=== PATIENT | male | born 1985 | race Caucasian/White ===

== ENCOUNTER 2016-12-27 19:06 | Emergency (ER) | payer SELFPAY ==
[~2016-12-27 19:06] MED LIST: BACT800T5 PO; HYDR-3533 PO; IBUP800T23 PO
[2016-12-27 19:19] VITALS: BP 128/71; PULSE 70; RESP 20; TEMP 98.6; O2SAT 98
[2016-12-27 20:15] VITALS: BP 137/63; PULSE 62; RESP 18; O2SAT 98
--- NOTE | 2016-12-27 20:34 | PD ---
HPI Chief Complaint: Headache Time Seen by Provider: 20:23 Travel History International Travel<30 days: No Contact w/Intl Traveler<30days: No Traveled to known affect area: No History of Present Illness HPI This 31-year-old male says he having a headache for the last 2 days. Said he had his head on several occasions while moving. He cracked his helmet on different pieces of furniture and had pain though he did not have loss of consciousness. He is having fairly persistent headache for a couple of days as a bitemporal headache. He says he has had some chills. He says that last night he woke up drenched with sweat. He has not had a cough or sore throat. He does smoke cigarettes. He had a tattoo 2 weeks ago. He does smoke cigarettes PFS Past Medical History Blood Disorders: No Cancer: No Cardiovascular Problems: No Diminished Hearing: No Gastrointestinal Disorders: Yes GERD: Yes Genitourinary: No Musculoskeletal: No Neurologic: No Psychiatric: No Reproductive: No Respiratory: No Immunizations Current: No Tetanus Vaccination: < 5 Years Influenza Vaccination: No Past Surgical History Other Surgery: Yes (FX JAW . TITANIUM PLATE) Social History Alcohol Use: Yes (Socially) Tobacco Use: Yes (1/2 ppd) Substance Use: Yes (Marijuana occasionally) Allergies-Medications (Allergen,Severity, Reaction): Coded Allergies: No Known Allergies (Verified , 12/27/16) Reported Meds & Prescriptions Reported Meds & Active Scripts Active No Active Prescriptions or Reported Medications Review of Systems General / Constitutional: Positive: Chills, No: Fever Eyes: No: Diploplia, Blurred Vision HENT: Positive: Headaches, No: Vertigo Cardiovascular: No: Chest Pain or Discomfort Respiratory: No: Cough, Shortness of Breath Gastrointestinal: No: Nausea, Vomiting Genitourinary: No: Urgency, Frequency Musculoskeletal: Positive: Myalgias, Arthralgias Skin: No Rash Physical Exam Narrative GENERAL: Well-developed male SKIN: Focused skin assessment warm/dry. HEAD: Atraumatic. Normocephalic. EYES: Pupils equal and round. No scleral icterus. No injection or drainage. ENT: No nasal bleeding or discharge. Mucous membranes pink and moist. NECK: Trachea midline. No JVD. Neck is supple CARDIOVASCULAR: Regular rate and rhythm. No murmur appreciated. RESPIRATORY: No accessory muscle use. Clear to auscultation. Breath sounds equal bilaterally. GASTROINTESTINAL: Abdomen soft, non-tender, nondistended. Hepatic and splenic margins not palpable. MUSCULOSKELETAL: No obvious deformities. No clubbing. No cyanosis. No edema. NEUROLOGICAL: Awake and alert. No obvious cranial nerve deficits. Motor grossly within normal limits. Normal speech. PSYCHIATRIC: Appropriate mood and affect; insight and judgment normal. Data Data Last Documented VS Vital Signs Date Time Temp Pulse Resp B/P Pulse Ox O2 Delivery O2 Flow Rate FiO2 12/27/16 21:15 98.0 66 18 129/60 98 Room Air Orders Complete Blood Count With Diff (12/27/16 20:31) Comprehensive Metabolic Panel (12/27/16 20:31) Ct Brain W/O Iv Contrast(Rout) (12/27/16 20:31) Ibuprofen (Motrin) (12/27/16 20:45) Labs Laboratory Tests Test 12/27/16 20:30 White Blood Count 4.3 TH/MM3 Red Blood Count 4.80 MIL/MM3 Hemoglobin 14.7 GM/DL Hematocrit 42.4 % Mean Corpuscular Volume 88.3 FL Mean Corpuscular Hemoglobin 30.7 PG Mean Corpuscular Hemoglobin 34.8 % Concent Red Cell Distribution Width 12.1 % Platelet Count 119 TH/MM3 Mean Platelet Volume 8.3 FL Neutrophils (%) (Auto) 58.7 % Lymphocytes (%) (Auto) 26.8 % Monocytes (%) (Auto) 11.4 % Eosinophils (%) (Auto) 2.5 % Basophils (%) (Auto) 0.6 % Neutrophils # (Auto) 2.6 TH/MM3 Lymphocytes # (Auto) 1.1 TH/MM3 Monocytes # (Auto) 0.5 TH/MM3 Eosinophils # (Auto) 0.1 TH/MM3 Basophils # (Auto) 0.0 TH/MM3 CBC Comment DIFF FINAL Differential Comment Sodium Level 140 MEQ/L Potassium Level 4.1 MEQ/L Chloride Level 103 MEQ/L Carbon Dioxide Level 31.8 MEQ/L Anion Gap 5 MEQ/L Blood Urea Nitrogen 11 MG/DL Creatinine 1.10 MG/DL Estimat Glomerular Filtration 77 ML/MIN Rate Random Glucose 100 MG/DL Calcium Level 8.7 MG/DL Total Bilirubin 0.4 MG/DL Aspartate Amino Transf 26 U/L (AST/SGOT) Alanine Aminotransferase 26 U/L (ALT/SGPT) Alkaline Phosphatase 51 U/L Total Protein 6.5 GM/DL Albumin 3.4 GM/DL MDM Medical Decision Making Medical Screen Exam Complete: Yes Emergency Medical Condition: Yes Medical Record Reviewed: Yes Differential Diagnosis Differential includes head injury, viral syndrome, meningitis Narrative Course CT scan of the head is read as negative. His white count is 4000. On examination his neck is supple and not suspicious for meningitis. This appears to be a viral illness however recommend that he take ibuprofen as needed for headache. Follow-up with his own medical doctor Diagnosis Primary Impression: Viral illness Additional Instructions: Take ibuprofen as needed for headache Scripts No Active Prescriptions or Reported Meds Disposition: 01 DISCHARGE HOME Condition: Stable Kris Castillo MD Dec 27, 2016 20:34
[2016-12-27 20:45] LABS: AUTOMATED NEUTROPHIL # 2.6 TH/MM3 (1.8-7.7); BASOPHIL % 0.6 % (0.0-2.0); EOSINOPHIL # 0.1 TH/MM3 (0-0.4); EOSINOPHIL % 2.5 % (0.0-4.0); HEMATOCRIT 42.4 % (39.0-51.0); HEMO FLAGS DIFF FINAL; LYMPH % 26.8 % (9.0-44.0); LYMPHOCYTE # 1.1 TH/MM3 (1.0-4.8); MEAN CELL VOLUME 88.3 FL (80.0-100.0); MEAN CORPUSCULAR HEMOGLOBIN 30.7 PG (27.0-34.0); MEAN CORPUSCULAR HGB CONC 34.8 % (32.0-36.0); MONO % 11.4 % (0.0-8.0); NEUT % 58.7 % (16.0-70.0); PLATELET COUNT 119 TH/MM3 (150-450); RED CELL DISTRIBUTION WIDTH 12.1 % (11.6-17.2); WHITE BLOOD COUNT 4.3 TH/MM3 (4.0-11.0)
[2016-12-27] MEDS ORDERED: IBUPROFEN 600 MG TAB PO ONE (20:45)
[2016-12-27 20:51] LABS: CHLORIDE 103 MEQ/L (98-107); POTASSIUM 4.1 MEQ/L (3.5-5.1); SODIUM (NA) 140 MEQ/L (136-145)
[2016-12-27 20:54] LABS: ANION GAP 5 MEQ/L (5-15); BICARBONATE 31.8 MEQ/L (21.0-32.0); BLOOD UREA NITROGEN 11 MG/DL (7-18)
[2016-12-27 20:57] LABS: ALT (GPT) 26 U/L (12-78); AST (GOT) 26 U/L (15-37); GLOMERULAR FILTRATION RATE 77 ML/MIN (>89)
[2016-12-27 20:59] LABS: TOTAL BILIRUBIN ADULT 0.4 MG/DL (0.2-1.0)
[2016-12-27 21:00] LABS: ALKALINE PHOSPHATASE 51 U/L (45-117)
[2016-12-27 21:15] VITALS: BP 129/60; PULSE 66; RESP 18; TEMP 98; O2SAT 98
--- NOTE | 2016-12-27 21:16 | RADRPT ---
EXAM DATE/TIME: 12/27/2016 20:51 [facility] COMPARISON: No previous studies available for comparison. INDICATIONS : Trauma. Cephalgia. RADIATION DOSE: 52.78 CTDIvol (mGy) MEDICAL HISTORY : None SURGICAL HISTORY : mandible ENCOUNTER: Initial ACUITY: 2 days PAIN SCALE: 7/10 LOCATION: Bilateral temporal TECHNIQUE: Multiple contiguous axial images were obtained of the head. Using automated exposure control and adj ustment of the mA and/or kV according to patient size, radiation dose was kept as low as reasonably a chievable to obtain optimal diagnostic quality images. DICOM format image data is available electro nically for review and comparison. FINDINGS: CEREBRUM: The ventricles are normal for age. No evidence of midline shift, mass lesion, hemorrhage or acute in farction. No extra-axial fluid collections are seen. POSTERIOR FOSSA: The cerebellum and brainstem are intact. The 4th ventricle is midline. The cerebellopontine angle i s unremarkable. EXTRACRANIAL: The visualized portion of the orbits is intact. SKULL: The calvaria is intact. No evidence of skull fracture. CONCLUSION: Normal examination. David Raygoza Jr., MD on December 27, 2016 at 21:14 Board Certified Radiologist. This report was verified electronically.
[2016-12-27 21:50] VITALS: RESP 18
== END 2016-12-27 21:49 | disposition home or self-care (01) ==
LOC: PHED 19:06
DX: B34.9 Viral infection, unspecified (principal); F17.210 Nicotine dependence, cigarettes, uncomplicated
CPT/HCPCS: 70450; 80053; 85025; 99285

== ENCOUNTER 2017-10-17 20:52 | Emergency (ER) | payer SELFPAY ==
[~2017-10-17] VITALS: Ht 172.7 cm; Wt 59.0 kg
[2017-10-17 21:56] VITALS: BP 128/71; PULSE 78; RESP 20; TEMP 98.6
[2017-10-17 22:34] LABS: AUTOMATED NEUTROPHIL # 4.4 TH/MM3 (1.8-7.7); BASOPHIL # 0.5 TH/MM3 (0-0.2); BASOPHIL % 6.6 % (0.0-2.0); EOSINOPHIL % 0.6 % (0.0-4.0); HEMATOCRIT 38.5 % (39.0-51.0); HEMOGLOBIN 13.5 GM/DL (13.0-17.0); LYMPH % 26.4 % (9.0-44.0); LYMPHOCYTE # 1.9 TH/MM3 (1.0-4.8); MEAN CELL VOLUME 83.9 FL (80.0-100.0); MEAN CORPUSCULAR HEMOGLOBIN 29.4 PG (27.0-34.0); MEAN PLATELET VOLUME 7.8 FL (7.0-11.0); MONO % 4.9 % (0.0-8.0); MONOCYTE # 0.4 TH/MM3 (0-0.9); NEUT % 61.5 % (16.0-70.0); PLATELET COUNT 183 TH/MM3 (150-450); RED BLOOD COUNT 4.59 MIL/MM3 (4.50-5.90); RED CELL DISTRIBUTION WIDTH 12.4 % (11.6-17.2); WHITE BLOOD COUNT 7.2 TH/MM3 (4.0-11.0)
[2017-10-17 22:42] LABS: CHLORIDE 110 MEQ/L (98-107); SODIUM (NA) 142 MEQ/L (136-145)
[2017-10-17 22:45] LABS: ALBUMIN 3.4 GM/DL (3.4-5.0); BICARBONATE 25.3 MEQ/L (21.0-32.0); BLOOD UREA NITROGEN 5 MG/DL (7-18); CALCIUM 8.5 MG/DL (8.5-10.1); GLUCOSE,RANDOM 105 MG/DL (74-106)
[2017-10-17 22:48] LABS: ALT (GPT) 31 U/L (12-78); AST (GOT) 16 U/L (15-37); CREATININE 0.67 MG/DL (0.60-1.30); GLOMERULAR FILTRATION RATE 136 ML/MIN (>89)
[2017-10-17 22:50] LABS: TOTAL BILIRUBIN ADULT 0.3 MG/DL (0.2-1.0)
[2017-10-17] MEDS ORDERED: SODIUM CHLOR 0.9% 1000 ML INJ 1,000 ML IV SCH (22:50)
[2017-10-17 22:51] LABS: ALKALINE PHOSPHATASE 59 U/L (45-117)
--- NOTE | 2017-10-17 22:54 | PD ---
HPI Chief Complaint: Abdominal Pain Time Seen by Provider: 22:40 Travel History International Travel<30 days: No Contact w/Intl Traveler<30days: No Traveled to known affect area: No History of Present Illness HPI 32-year-old male with no significant past medical history presents to the emergency room complaining of nausea, vomiting, abdominal pain, diarrhea for the last 4 days with abdominal cramps that started today. 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 Patient denies any chest pain or shortness of breath. Patient's abdominal pain is mostly in the left lower quadrant. PFSH Past Medical History Blood Disorders: No Cancer: No Cardiovascular Problems: No Diminished Hearing: No Gastrointestinal Disorders: Yes GERD: Yes Genitourinary: No Musculoskeletal: No Neurologic: No Psychiatric: No Reproductive: No Respiratory: No Immunizations Current: No Influenza Vaccination: No Past Surgical History Other Surgery: Yes (FX JAW . TITANIUM PLATE) Social History Alcohol Use: Yes (Socially) Tobacco Use: Yes (06/20) Substance Use: No (QUIT 2013) Allergies-Medications (Allergen,Severity, Reaction): Coded Allergies: No Known Allergies (Verified Adverse Reaction, Unknown, 10/17/17) Reported Meds & Prescriptions Reported Meds & Active Scripts Active Tylenol-Codeine #3 (Acetaminophen-Codeine) 300-30 mg Tab 1-2 Tab PO Q6H PRN Zofran Odt (Ondansetron Odt) 4 Mg Tab 4 Mg SL Q6HR PRN 10 Days Omeprazole 40 Mg Cap 40 Mg PO DAILY 14 Days Review of Systems Except as stated in HPI: all other systems reviewed are Neg General / Constitutional: No: Fever, Chills Eyes: No: Blurred Vision, Redness, Pain HENT: No: Rhinorrhea, Congestion, Neck Stiffness, Neck Pain, Earache Cardiovascular: No: Chest Pain or Discomfort, Palpitations, Dyspnea on exertion Respiratory: No: Cough, Shortness of Breath, Wheezing Gastrointestinal: Positive: Nausea, Vomiting, Diarrhea, Abdominal Pain Genitourinary: No: Dysuria Musculoskeletal: Positive: Myalgias, Cramping Skin: No Rash, No Hives Neurologic: No: Weakness, Dizziness, Syncope, Headache, Slurred Speech, Seizures Psychiatric: No: Suicidal Ideations Physical Exam Narrative Vital Signs Date Time Temp Pulse Resp B/P (MAP) Pulse Ox O2 Delivery O2 Flow Rate FiO2 10/18/17 02:04 98.1 72 16 130/68 (88) 98 10/17/17 23:53 64 16 141/66 (91) 99 Room Air 10/17/17 21:56 98.6 78 20 128/71 (90) GENERAL: Patient is alert and oriented -3 SKIN: Focused skin assessment warm/dry. HEAD: Atraumatic. Normocephalic. EYES: Pupils equal and round. No scleral icterus. No injection or drainage. ENT: No nasal bleeding or discharge. Mucous membranes pink and moist. NECK: Trachea midline. No JVD. CARDIOVASCULAR: Regular rate and rhythm. No murmur appreciated. RESPIRATORY: No accessory muscle use. Clear to auscultation. Breath sounds equal bilaterally. GASTROINTESTINAL: Abdomen soft, tender left lower quadrant, nondistended. Hepatic and splenic margins not palpable. MUSCULOSKELETAL: No obvious deformities. No clubbing. No cyanosis. No edema. NEUROLOGICAL: Awake and alert. No obvious cranial nerve deficits. Motor grossly within normal limits. Normal speech. PSYCHIATRIC: Appropriate mood and affect; insight and judgment normal. Data Data Last Documented VS Vital Signs Date Time Temp Pulse Resp B/P (MAP) Pulse Ox O2 Delivery O2 Flow Rate FiO2 10/18/17 02:04 98.1 72 16 130/68 (88) 98 10/17/17 23:53 Room Air Orders Orders Complete Blood Count With Diff (10/17/17 22:13) Comprehensive Metabolic Panel (10/17/17 22:13) Urinalysis - C+S If Indicated (10/17/17 22:13) Iv Access Insert/Monitor (10/17/17 22:13) Oxygen Administration (10/17/17 22:13) Oximetry (10/17/17 22:13) Lactic Acid (10/17/17 22:50) Morphine Inj (Morphine Inj) (10/17/17 23:00) Ondansetron Inj (Zofran Inj) (10/17/17 23:00) Pantoprazole Inj (Protonix Inj) (10/17/17 23:00) Sodium Chlor 0.9% 1000 Ml Inj (Ns 1000 M (10/17/17 22:50) Sodium Chloride 0.9% Flush (Ns Flush) (10/17/17 23:00) Creatine Kinase (Cpk) (10/17/17 22:25) Lipase (10/17/17 22:25) Oral Contrast - Adult (10/17/17 23:02) Diatrizoate Liq (Md Heriberto Rader) (10/17/17 23:07) Ct Abd/Pel W Iv Contrast(Rout) (10/18/17 00:15) Iohexol 350 Inj (Omnipaque 350 Inj) (10/18/17 00:30) Ed Discharge Order (10/18/17 01:47) Labs Laboratory Tests Test 10/17/17 22:25 10/17/17 22:59 10/18/17 00:26 White Blood Count 7.2 TH/MM3 Red Blood Count 4.59 MIL/MM3 Hemoglobin 13.5 GM/DL Hematocrit 38.5 % Mean Corpuscular Volume 83.9 FL Mean Corpuscular Hemoglobin 29.4 PG Mean Corpuscular Hemoglobin Concent 35.0 % Red Cell Distribution Width 12.4 % Platelet Count 183 TH/MM3 Mean Platelet Volume 7.8 FL Neutrophils (%) (Auto) 61.5 % Lymphocytes (%) (Auto) 26.4 % Monocytes (%) (Auto) 4.9 % Eosinophils (%) (Auto) 0.6 % Basophils (%) (Auto) 6.6 % Neutrophils # (Auto) 4.4 TH/MM3 Lymphocytes # (Auto) 1.9 TH/MM3 Monocytes # (Auto) 0.4 TH/MM3 Eosinophils # (Auto) 0.0 TH/MM3 Basophils # (Auto) 0.5 TH/MM3 CBC Comment DIFF FINAL Differential Comment Blood Urea Nitrogen 5 MG/DL Creatinine 0.67 MG/DL Random Glucose 105 MG/DL Total Protein 7.0 GM/DL Albumin 3.4 GM/DL Calcium Level 8.5 MG/DL Alkaline Phosphatase 59 U/L Aspartate Amino Transf (AST/SGOT) 16 U/L Alanine Aminotransferase (ALT/SGPT) 31 U/L Total Bilirubin 0.3 MG/DL Sodium Level 142 MEQ/L Potassium Level 3.2 MEQ/L Chloride Level 110 MEQ/L Carbon Dioxide Level 25.3 MEQ/L Anion Gap 7 MEQ/L Estimat Glomerular Filtration Rate 136 ML/MIN Total Creatine Kinase 86 U/L Lipase 89 U/L Lactic Acid Level 1.0 mmol/L Urine Color YELLOW Urine Turbidity CLEAR Urine pH 5.5 Urine Specific [place] LESS/EQUAL 1.005 Urine Protein NEG mg/dL Urine Glucose (UA) NEG mg/dL Urine Ketones NEG mg/dL Urine Occult Blood NEG Urine Nitrite NEG Urine Bilirubin NEG Urine Urobilinogen 0.2 MG/DL Urine Leukocyte Esterase NEG Urine RBC 0-2 /hpf Urine WBC 0-2 /hpf Urine Squamous Epithelial Cells 0-5 /hpf Urine Bacteria NONE /hpf Microscopic Urinalysis Comment CULT NOT INDICATED Last 24 hours Impressions Abdomen/Pelvis CT 10/18/17 0015 Signed Impressions: Service Date/Time: Wednesday, October 18, 2017 00:08 - CONCLUSION: 1. No acute intra-abdominal or pelvic process to explain current clinical symptoms. 2. Retroaortic left renal vein, an anatomic variant Javan Herron MD [facility] Medical Decision Making Medical Screen Exam Complete: Yes Emergency Medical Condition: Yes Medical Record Reviewed: Yes Differential Diagnosis Gastroenteritis, diverticulitis, small bowel obstruction, pancreatitis, appendicitis Narrative Course Patient improved during the ER course after receiving medications. CAT scan results were negative for diverticulitis or acute disease. I will discharge the patient home to follow-up as outpatient care on Zofran and pain meds Diagnosis Primary Impression: Nausea vomiting and diarrhea Additional Impression: Abdominal pain, vomiting, and diarrhea Referrals: Primary Care Physician 2 days Patient Instructions: Abdominal Pain (ED), Acute Nausea and Vomiting (DC), General Instructions Scripts Acetaminophen-Codeine (Tylenol-Codeine #3) 300-30 mg Tab 1-2 TAB PO Q6H Y for PAIN, #12 TAB 0 Refills Prov: Tucker Irwin MD 10/18/17 Ondansetron Odt (Zofran Odt) 4 Mg Tab 4 MG SL Q6HR Y for Nausea/Vomiting for 10 Days, #12 TAB 0 Refills Prov: Tucker Irwin MD 10/18/17 Omeprazole (Omeprazole) 40 Mg Cap 40 MG PO DAILY for 14 Days, #14 CAP 0 Refills Prov: Tucker Irwin MD 10/18/17 Disposition: 01 DISCHARGE HOME Condition: Stable Tucker Irwin MD October 17, 2017 22:54
[2017-10-17] MEDS ORDERED: SODIUM CHLORIDE 0.9% FLUSH 10 ML FLUSH IV FLUSH PRN (23:00)
[2017-10-17] MEDS ORDERED: PANTOPRAZOLE SODIUM 40 MG VIAL IVP ONE (23:00)
[2017-10-17] MEDS ORDERED: MORPHINE SULFATE 4 MG/ML INJ IV PUSH ONE (23:00)
[2017-10-17] MEDS ORDERED: ONDANSETRON HCL 4 MG/2 ML VIAL IVP ONE (23:00)
[2017-10-17] MEDS ORDERED: DIATRIZOATE MEGLUM/DIATRIZOATE SOD 9 ML CUP ONE (23:07)
[2017-10-17 23:53] VITALS: BP 141/66; PULSE 64; RESP 16; O2SAT 99
[2017-10-18] MEDS ORDERED: IOHEXOL 350 MG/ML 10 ML VIAL (for RAD DIAG) IVCONTRAST ONE (00:30)
[2017-10-18 00:56] LABS: BILIRUBIN, URINE NEG (NEG); BLOOD, URINE NEG (NEG); GLUCOSE,URINE NEG (NEG); KETONE, URINE NEG (NEG); NITRITE,URINE NEG (NEG); PH, URINE 5.5 (5.0-8.5); URINE COLOR YELLOW (YELLW/STRAW); URINE LEUKOCYTE ESTERASE NEG (NEG)
[2017-10-18 01:08] LABS: RBC, URINE 0-2 /hpf (0-3); SQUAMOUS EPITHELIAL CELL URINE 0-5 /hpf (0-5); WBC, URINE 0-2 /hpf (0-5)
--- NOTE | 2017-10-18 01:26 | RADRPT ---
EXAM DATE/TIME: 10/18/2017 00:08 [facility] COMPARISON: No previous studies available for comparison. INDICATIONS : Bilateral lower abdominal pain. IV CONTRAST: 75 cc Omnipaque 350 (iohexol) IV ORAL CONTRAST: Partial prescribed oral contrast ingested. RADIATION DOSE: 5.37 CTDIvol (mGy) MEDICAL HISTORY : Gastroesophageal reflux disease. SURGICAL HISTORY : None. ENCOUNTER: Initial ACUITY: 2 days PAIN SCALE: 7/10 LOCATION: Bilateral lower quadrant TECHNIQUE: Volumetric scanning of the abdomen and pelvis was performed. Using automated exposure control and ad justment of the mA and/or kV according to patient size, radiation dose was kept as low as reasonably achievable to obtain optimal diagnostic quality images. DICOM format image data is available electro nically for review and comparison. FINDINGS: LOWER LUNGS: The visualized lower lungs are clear. LIVER: Homogeneous density without lesion. There is no dilation of the biliary tree. No calcified gallston es. SPLEEN: Normal size without lesion. PANCREAS: Within normal limits. KIDNEYS: Normal in size and shape. There is no mass, stone or hydronephrosis. ADRENAL GLANDS: Within normal limits. VASCULAR: There is no aortic aneurysm. Retroaortic left renal vein. BOWEL/MESENTERY: The stomach, small bowel, and colon demonstrate no acute abnormality. There is no free intraperitone al air or fluid. ABDOMINAL WALL: Within normal limits. RETROPERITONEUM: There is no lymphadenopathy. BLADDER: No wall thickening or mass. Distention of the urinary bladder REPRODUCTIVE: Within normal limits. INGUINAL: There is no lymphadenopathy or hernia. MUSCULOSKELETAL: Within normal limits for patient age. 1 cm rim sclerotic lesion in the medial left ilium is overtly b enign CONCLUSION: 1. No acute intra-abdominal or pelvic process to explain current clinical symptoms. 2. Retroaortic left renal vein, an anatomic variant Javan Herron MD on October 18, 2017 at 1:21 Board Certified Radiologist. This report was verified electronically.
[2017-10-18] MEDS ORDERED: ZOFR4TAB3 SL (01:46)
[2017-10-18] MEDS ORDERED: OMEP40CA2 PO (01:46)
[2017-10-18] MEDS ORDERED: TYLETAB34 PO (01:46)
[2017-10-18 02:04] VITALS: BP 130/68; TEMP 98.1
== END 2017-10-18 02:06 | disposition home or self-care (01) ==
LOC: PHED 20:52
DX: R11.2 Nausea with vomiting, unspecified (principal); R19.7 Diarrhea, unspecified; R10.32 Left lower quadrant pain; K21.9 Gastro-esophageal reflux disease without esophagitis; F17.200 Nicotine dependence, unspecified, uncomplicated; Z79.899 Other long term (current) drug therapy
CPT/HCPCS: 74177; 80053; 81001; 82550; 83605; 83690; 85025; 96361; 96374; 96375; 99285; C9113; J2270; J2405; J7030; Q9963; Q9967

== ENCOUNTER 2017-12-05 15:02 | Emergency (ER) | payer SELFPAY ==
[~2017-12-05] VITALS: Ht 175.3 cm; Wt 70.0 kg
[~2017-12-05 15:02] MED LIST changes: -BACT800T5 PO; -HYDR-3533 PO; -IBUP800T23 PO; +OMEP40CA2 PO; +TYLETAB34 PO; +ZOFR4TAB3 SL
[2017-12-05 15:15] VITALS: BP 158/71; PULSE 94; RESP 16; TEMP 98.7; O2SAT 97
[2017-12-05] MEDS ORDERED: COLA100C5 PO (16:48)
[2017-12-05] MEDS ORDERED: ANUS25SU RECTAL (16:51)
--- NOTE | 2017-12-05 16:53 | PD ---
HPI Chief Complaint: Skin Problem Time Seen by Provider: 16:33 Travel History International Travel<30 days: No Contact w/Intl Traveler<30days: No Traveled to known affect area: No History of Present Illness HPI 32-year-old male presents emergency department complaint of a hemorrhoid that flared up on Monday. He has history of hemorrhoids. He denies abdominal pain , fever, vomiting. Says he has history of constipation and has been able to have bowel movements, but it is painful. He has tried sitz baths, over-the- counter creams, ice, and other treatments for symptom management. Rates pain 5/ 10. Worse with sitting, a lot of walking, bowel movement. Decreased when he lies on his side. No primary care provider. Denies significant past medical history. No known allergies. Has no other medical complaints. No other modifying factors or associated signs and symptoms. PFSH Past Medical History Blood Disorders: No Cancer: No Cardiovascular Problems: No Diminished Hearing: No Gastrointestinal Disorders: Yes GERD: Yes Genitourinary: No Musculoskeletal: No Neurologic: No Psychiatric: No Reproductive: No Respiratory: No Immunizations Current: No Past Surgical History Other Surgery: Yes (FX JAW . TITANIUM PLATE) Social History Alcohol Use: Yes (Socially) Tobacco Use: Yes (06/20) Substance Use: No (QUIT 2013) Allergies-Medications (Allergen,Severity, Reaction): Coded Allergies: No Known Allergies (Verified Adverse Reaction, Unknown, 10/17/17) Reported Meds & Prescriptions Reported Meds & Active Scripts Active Anusol-Hc Supp (Hydrocortisone Supp) 25 Mg Supp 25 Mg RECTAL BID PRN Colace (Docusate Sodium) 100 Mg Capsule 100 Mg PO BID PRN Tylenol-Codeine #3 (Acetaminophen-Codeine) 300-30 mg Tab 1-2 Tab PO Q6H PRN Zofran Odt (Ondansetron Odt) 4 Mg Tab 4 Mg SL Q6HR PRN 10 Days Omeprazole 40 Mg Cap 40 Mg PO DAILY 14 Days Review of Systems Except as stated in HPI: all other systems reviewed are Neg Physical Exam Narrative GENERAL: Well-nourished, well-developed patient, in no acute distress ; afebrile, nontoxic-appearing SKIN: Warm and dry. HEAD: Atraumatic. Normocephalic. EYES: Pupils equal and round. No scleral icterus. No injection or drainage. ENT: Mucosa pink and moist. Airway patent. NECK: Trachea midline. CARDIOVASCULAR: Regular rate RESPIRATORY: No accessory muscle use. GASTROINTESTINAL: Flat RECTAL EXAM: Exam done in the presence of a nurse. Visualized external hemorrhoid noted. Unable to perform [place] secondary to pain. MUSCULOSKELETAL: No obvious deformities. No clubbing. No cyanosis. No edema. NEUROLOGICAL: Awake and alert. Oriented 3. No obvious cranial nerve deficits. Motor grossly within normal limits. Normal speech. PSYCHIATRIC: Appropriate mood and affect; insight and judgment normal. Data Data Last Documented VS Vital Signs Date Time Temp Pulse Resp B/P (MAP) Pulse Ox O2 Delivery O2 Flow Rate FiO2 12/05/17 15:15 98.7 94 16 158/71 (100) 97 Orders Orders Ed Discharge Order (12/05/17 16:53) [facility] Medical Decision Making Medical Screen Exam Complete: Yes Emergency Medical Condition: Yes Medical Record Reviewed: Yes Differential Diagnosis Hemorrhoid, thrombosed hemorrhoid, larry likely perirectal abscess Narrative Course 32-year-old male with external visualized hemorrhoid. It is not thrombosed. Unable to perform [place] secondary to pain. Discussed symptom management. Anusol- HC suppository and Colace prescribed for home. Instructed patient to follow up with primary care provider. Patient verbalizes understanding and agreement with treatment plan. Patient is medically cleared and stable for discharge. Discussed reasons to return to the emergency department. Patient agrees with treatment plan. The patients vital signs are stable and the patient is stable for outpatient follow-up and treatment. Patient discharged home, stable and in no acute distress. Diagnosis Primary Impression: External hemorrhoid Referrals: [facility] Primary Care Physician Patient Instructions: General Instructions, Hemorrhoids (ED) Additional Instructions: Ibuprofen or Tylenol as directed and as needed for pain and inflammation Warm and/or cold compresses to the area to decrease pain and inflammation [id number] Aspercreme or other type of topical [id number]-[id number] anesthetic to help reduce pain [id number] hemorrhoid cream and/or suppositories as directed and as needed for hemorrhoid Which Stacey pads to the area to decrease pain and inflammation Follow-up with primary care provider Return to the emergency department immediately with worsening of symptoms Med/Other Pt SpecificInfo: Prescription(s) given Scripts Hydrocortisone Supp (Anusol-Hc Supp) 25 Mg Supp 25 MG RECTAL BID Y for HEMORRHOIDS, #12 SUPP Prov: Margareth Stevenson 12/05/17 Docusate Sodium (Colace) 100 Mg Capsule 100 MG PO BID Y for CONSTIPATION, #10 CAP 0 Refills Prov: Margareth Stevenson 12/05/17 Disposition: 01 DISCHARGE HOME Condition: Stable Margareth Stevenson Dec 05, 2017 16:53
== END 2017-12-05 17:06 | disposition home or self-care (01) ==
LOC: NEPD 15:02
DX: K64.4 Residual hemorrhoidal skin tags (principal); K21.9 Gastro-esophageal reflux disease without esophagitis; F17.200 Nicotine dependence, unspecified, uncomplicated; Z79.899 Other long term (current) drug therapy
CPT/HCPCS: 99283